=== PATIENT | male | born 1990 | race Caucasian/White ===

== ENCOUNTER → 2020-03-09 | Outpatient (CLI) | payer BC | LOC: COL.RAD 09:11 | DX: R22.1 Localized swelling, mass and lump, neck (principal) ==

== ENCOUNTER 2021-09-01 06:26 | Emergency (ER) | payer SELFPAY ==
[~2021-09-01] VITALS: Ht 182.9 cm; Wt 84.1 kg
[2021-09-01 06:32] VITALS: TEMP 97.5
[2021-09-01 07:24] LABS: MEAN CELL VOLUME 88 fl (80.0-100.0); MEAN CORPUSCULAR HGB CONC 37 g/dl (33.0-37.0); MEAN PLATELET VOLUME 10.5 fl (7.4-10.4); PLATELET COUNT 328 K/mm3 (130-400); RED BLOOD COUNT 6.01 M/mm3 (4.20-5.60)
[2021-09-01 07:33] LABS: ALBUMIN 5.2 gm/dL (3.5-5.0); BILIRUBIN,TOTAL 0.6 mg/dL (0.2-1.2); CREATININE, serum 1.18 mg/dL (0.72-1.25); POTASSIUM 3.6 mmol/L (3.5-4.5); TOTAL PROTEIN 7.7 gm/dL (6.2-8.1)
[2021-09-01 07:36] LABS: HEMATOCRIT 52.9 % (42.0-52.0); HEMOGLOBIN 19.6 g/dl (13.5-18.0); MEAN CORPUSCULAR HEMOGLOBIN 33 pg (27-31)
[2021-09-01 07:52] LABS: BAND 1 % (0-10); LYMPHOCYTE 19 % (20.0-51.0); NEUTROPHILS 71 % (42.0-75.2)
[2021-09-01 07:53] LABS: PLATELET ESTIMATE NORMAL (NORMAL)
[2021-09-01 08:03] LABS: COLLECTION METHOD CLEAN CATCH
[2021-09-01 08:12] LABS: MUCOUS Present (NOT PRESENT); PH 7 (5-8); SQUAMOUS EPITHELIAL None Seen /hpf (0-10); URINE APPEARANCE Clear (CLEAR/HAZY); URINE BACTERIA None Seen /hpf (NONE SEEN); URINE BILIRUBIN Negative (NEGATIVE); URINE BLOOD Negative (NEGATIVE); URINE COLOR Yellow (YELLOW); URINE GLUCOSE Negative (NEGATIVE); URINE KETONE 1+ (NEGATIVE); URINE LEUKOCYTE ESTERASE Negative (NEGATIVE); URINE NITRATE Negative (NEGATIVE); URINE PROTEIN(semi-quant) 1+ (NEGATIVE); URINE RBC 0-2 /hpf (0-2); URINE UROBILINOGEN Negative (NEGATIVE)
[2021-09-01] MEDS ORDERED: ZOFRAN ODT4 MG PO (08:32)
[2021-09-01 08:40] VITALS: BP 147/85; PULSE 56
== END 2021-09-01 08:40 | disposition home or self-care (01) ==
LOC: COL.ER 06:26
PROVIDERS: Emergency Medicine
DX: R10.13 Epigastric pain (principal); R11.2 Nausea with vomiting, unspecified; F17.200 Nicotine dependence, unspecified, uncomplicated
CPT/HCPCS: J1630; J2270; J7030; Q9967

== ENCOUNTER 2024-02-08 16:04 | Emergency (ER) | payer OTHER ==
[~2024-02-08] VITALS: Ht 182.9 cm; Wt 90.9 kg
[~2024-02-08 16:04] MED LIST: ZOFRAN ODT4 MG PO
[2024-02-08 16:12] VITALS: TEMP 97.7
[2024-02-08] MEDS ORDERED: diphenhydrAMINE 50 MG/ML 1 ML VIAL IV ONE (17:15)
[2024-02-08] MEDS ORDERED: NS 1,000 ML IV ONE ×2 (17:15→18:00)
[2024-02-08 17:32] LABS: HEMATOCRIT 44.9 % (42.0-52.0); HEMOGLOBIN 16.4 g/dl (13.5-18.0); MEAN CELL VOLUME 89 fl (80.0-100.0); MEAN CORPUSCULAR HEMOGLOBIN 33 pg (27-31); MEAN CORPUSCULAR HGB CONC 37 g/dl (33.0-37.0); MEAN PLATELET VOLUME 10.3 fl (7.4-10.4); PLATELET COUNT 287 K/mm3 (130-400); RED BLOOD COUNT 5.04 M/mm3 (4.20-5.60)
[2024-02-08 17:49] LABS: ALBUMIN 4.3 g/dL (3.5-5.0); BILIRUBIN,TOTAL 0.9 mg/dL (0.2-1.2); CREATININE, serum 1.16 mg/dL (0.72-1.25); POTASSIUM 3.8 mEq/L (3.5-4.5); TOTAL PROTEIN 7.1 g/dl (6.2-8.1)
[2024-02-08 18:46] LABS: BAND 2 % (0-10); LYMPHOCYTE 11 % (20.0-51.0); NEUTROPHILS 82 % (42.0-75.2); PLATELET ESTIMATE NORMAL (NORMAL)
[2024-02-08] MEDS ORDERED: NS 100 ML IV ONE (19:01)
[2024-02-08] MEDS ORDERED: Iohexol 300 - 100 ML VIAL IV ONE (19:01)
[2024-02-08] MEDS ORDERED: Home Promethazine 25 MG #2 TAB/PACK PO ONE (19:15)
[2024-02-08 19:23] VITALS: BP 147/97; PULSE 64
== END 2024-02-08 19:29 | disposition home or self-care (01) ==
LOC: COL.ER 16:04
PROVIDERS: Physician Assistant
DX: R11.2 Nausea with vomiting, unspecified (principal); R10.84 Generalized abdominal pain; F17.210 Nicotine dependence, cigarettes, uncomplicated
CPT/HCPCS: J0780; J1200; J7030; Q9967